=== PATIENT | male | born 1945 | race African-American/Black ===

== ENCOUNTER 2018-01-02 14:46 | Inpatient (IN) | payer MEDICARE, MEDICAID ==
[~2018-01-02] VITALS: Ht 182.9 cm; Wt 85.0 kg
[2018-01-02] MEDS ORDERED: ATOR40TA28 PO (16:09)
[2018-01-02] MEDS ORDERED: PANT40TA25 PO (16:09)
[2018-01-02] MEDS ORDERED: ASPI-556 PO (16:09)
[2018-01-02] MEDS ORDERED: LOSA50TA37 PO (16:09)
[2018-01-02] MEDS ORDERED: AMLO-512 PO (16:09)
[2018-01-02] MEDS ORDERED: METO50 PO (16:09)
[2018-01-02] MEDS ORDERED: DOCU250C91 PO (16:09)
[2018-01-02] MEDS ORDERED: HYDR25TA84 PO (16:09)
[2018-01-02 17:45] LABS: BASOPHILS % (AUTO) 0.6 % (0.0-2.0); EOSINOPHILS % (AUTO) 2.4 % (1.0-6.0); HEMATOCRIT 39.1 % (41-53); HEMOGLOBIN 13.9 g/dL (13.5-17.5); LYMPHOCYTES # (AUTO) 1.4 K/uL (1.0-4.8); LYMPHOCYTES % (AUTO) 20.2 % (22.0-44.0); MEAN CORPUSCULAR HEMOGLOBIN 29.5 pg (26.0-34.0); MEAN CORPUSCULAR HGB CONC 35.6 G/dL (31.0-37.0); MEAN CORPUSCULAR VOLUME 83 fL (80-100); MONOCYTES # (AUTO) 0.5 K/uL (0.1-1.0); MONOCYTES % (AUTO) 6.5 % (2.0-9.0); NEUTROPHILS # (AUTO) 4.9 K/uL (1.8-7.7); NEUTROPHILS % (AUTO) 70.3 % (40.0-70.0); PLATELET COUNT (AUTO) 222 K/uL (150-450); RED BLOOD CELL COUNT(AUTO) 4.71 MIL/uL (4.50-5.90); RED CELL DISTRIBUTION WIDTH 13.5 % (11.5-14.5)
[2018-01-02 18:08] LABS: PROTHROMBIN TIME 10.3 SEC (9.4-11.6)
[2018-01-02 18:22] LABS: B-TYPE NATRIURETIC PEPTIDE 112 pg/mL (0-100)
[2018-01-02 18:24] LABS: ALANINE AMINOTRANSFERASE 20 U/L (12-78); ALBUMIN 3.4 g/dL (3.4-5.0); ALKALINE PHOSPHATASE 111 U/L (46-116); ANION GAP 8 mmol/L (8-16); ASPARTATE AMINOTRANSFERASE 15 U/L (15-37); BILIRUBIN,TOTAL 0.3 mg/dL (0.1-1.0); CALCIUM, TOTAL 9.5 mg/dL (8.8-10.5); CARBON DIOXIDE 27 mmol/L (22-29); CHLORIDE 99 mmol/L (98-107); CREATINE KINASE, TOTAL 98 U/L (39-308); CREATININE 2.38 mg/dL (0.60-1.30); GLOMERULAR FILTR. RATE CALC 33 mL/min (>60); POTASSIUM 3.9 mmol/L (3.5-5.1); SODIUM SERUM 134 mmol/L (136-145); TOTAL PROTEIN, SERUM 7.4 g/dL (6.4-8.2); UREA NITROGEN, BLOOD 27 mg/dL (7-18)
[2018-01-02 18:26] LABS: GLUCOSE,RANDOM 546 mg/dL (70-110)
[2018-01-02 18:29] LABS: CREATINE KINASE MB 0.7 ng/mL (0-5)
[2018-01-02] MEDS ORDERED: INSULIN REGULAR, HUMAN 100 UNITS/ML IVP ONE (18:30)
[2018-01-02] MEDS ORDERED: CloNIDine HCL 0.2 MG TABLET PO ONE (18:30)
[2018-01-02 19:59] LABS: GLUCOSE,POINT OF CARE 419 MG/DL (70-110)
[2018-01-02] MEDS ORDERED: ZOLPIDEM TARTRATE 5 MG TABLET PO PRN (20:30)
[2018-01-02] MEDS ORDERED: BISACODYL 10 MG RECTAL RECTAL SUPPOSITORY PR PRN (20:30)
[2018-01-02] MEDS ORDERED: ALBUTEROL SULFATE 2.5 MG/0.5 ML NEB SOLUTION NEB PRN (20:30)
[2018-01-02] MEDS ORDERED: IPRATROPIUM BROMIDE 0.5 MG/2.5 ML NEB SOLUTION NEB PRN (20:30)
[2018-01-02] MEDS ORDERED: POTASSIUM CHL 10 MEQ/WATER 50 ML IV PRN (20:30)
[2018-01-02] MEDS ORDERED: DEXTROSE 50%-WATER 25 GM/50 ML SYRINGE IVP PRN (20:30)
[2018-01-02] MEDS ORDERED: ONDANSETRON HCL 4 MG/2 ML VIAL IVP PRN ×2 (20:30)
[2018-01-02] MEDS ORDERED: POTASSIUM CHLORIDE 20 MEQ ER TABLET PO PRN (20:30)
[2018-01-02] MEDS ORDERED: MAGNESIUM SULFATE 4 GM/WATER 100 ML IV PRN (20:30)
[2018-01-02] MEDS ORDERED: ACETAMINOPHEN 325 MG TABLET PO PRN ×2 (20:30)
[2018-01-02] MEDS ORDERED: MAGNESIUM OXIDE 400 MG TABLET PO PRN (20:30)
[2018-01-02] MEDS ORDERED: MAGNESIUM HYDROXIDE SUSPENSION 30 ML UDCUP PO PRN (20:30)
[2018-01-02] MEDS ORDERED: MAGNESIUM SULFATE 2 GM in DEXTROSE 5%-WATER 50 ML IV PRN (20:30)
[2018-01-02] MEDS ORDERED: 0.9% SODIUM CHLORIDE 10 ML SYRINGE IVP PRN (20:30)
[2018-01-02 20:54] LABS: GLUCOSE,POINT OF CARE 401 MG/DL (70-110)
[2018-01-02 21:35] VITALS: BP 118/74
[2018-01-02] MEDS: METOPROLOL TARTRATE 50 MG TABLET PO SCH (21:46)
[2018-01-02] MEDS: SODIUM CHLORIDE 0.9% 1,000 ML IV SCH (21:47)
[2018-01-02] MEDS: INSULIN LISPRO 100 UNITS/ML SQ PRN (22:08)
[2018-01-02] MEDS: LOSARTAN POTASSIUM 50 MG TABLET PO SCH (23:45)
[2018-01-03] VITALS (7 sets, daily range): BP systolic 141–180; BP diastolic 63–91
[2018-01-03] MEDS: HydrALAZINE HCL 25 MG TABLET PO SCH ×4 (00:19→23:59)
[2018-01-03] MEDS: INSULIN LISPRO 100 UNITS/ML SQ PRN ×4 (05:40→20:43)
[2018-01-03 06:05] LABS: BILIRUBIN,TOTAL 0.4 mg/dL (0.1-1.0); CALCIUM, TOTAL 8.9 mg/dL (8.8-10.5); CREATININE 2.36 mg/dL (0.60-1.30); MAGNESIUM 1.8 mg/dL (1.80-2.40); PHOSPHORUS 3.6 mg/dL (2.5-4.9); POTASSIUM 3.7 mmol/L (3.5-5.1); TOTAL PROTEIN, SERUM 6.8 g/dL (6.4-8.2)
[2018-01-03] MEDS: SODIUM CHLORIDE 0.9% 1,000 ML IV SCH ×2 (06:09→16:07)
[2018-01-03 06:16] LABS: HEMOGLOBIN A1C 9.5 % (4.5-6.2)
[2018-01-03 06:22] LABS: BASOPHILS % (AUTO) 0.6 % (0.0-2.0); EOSINOPHILS % (AUTO) 3.7 % (1.0-6.0); HEMATOCRIT 37.2 % (41-53); HEMOGLOBIN 13.3 g/dL (13.5-17.5); LYMPHOCYTES # (AUTO) 1.8 K/uL (1.0-4.8); LYMPHOCYTES % (AUTO) 27.7 % (22.0-44.0); MEAN CORPUSCULAR HEMOGLOBIN 29.1 pg (26.0-34.0); MEAN CORPUSCULAR HGB CONC 35.8 G/dL (31.0-37.0); MEAN CORPUSCULAR VOLUME 81 fL (80-100); MONOCYTES # (AUTO) 0.6 K/uL (0.1-1.0); MONOCYTES % (AUTO) 8.5 % (2.0-9.0); NEUTROPHILS % (AUTO) 59.5 % (40.0-70.0); PLATELET COUNT (AUTO) 200 K/uL (150-450); RED BLOOD CELL COUNT(AUTO) 4.57 MIL/uL (4.50-5.90); RED CELL DISTRIBUTION WIDTH 13.6 % (11.5-14.5)
[2018-01-03 07:37] LABS: GLUCOMETER DEV NAME(LOC) 5N 1P; GLUCOSE,POINT OF CARE 263 MG/DL (70-110)
[2018-01-03] MEDS: DOCUSATE SODIUM 250 MG CAPSULE PO SCH (08:31)
[2018-01-03] MEDS: ASPIRIN 81 MG EC TABLET PO SCH (08:31)
[2018-01-03] MEDS: ATORVASTATIN CALCIUM 40 MG TABLET PO SCH (08:31)
[2018-01-03] MEDS: PANTOPRAZOLE SODIUM 40 MG DR TABLET PO SCH (08:31)
[2018-01-03] MEDS: AmLODIPine BESYLATE 10 MG TABLET PO SCH (08:31)
[2018-01-03] MEDS: LOSARTAN POTASSIUM 50 MG TABLET PO SCH (08:32)
[2018-01-03] MEDS: METOPROLOL TARTRATE 50 MG TABLET PO SCH ×2 (08:33→20:41)
[2018-01-03 08:42] LABS: GLUCOMETER DEV NAME(LOC) 5N 2S; GLUCOSE,POINT OF CARE 416 MG/DL (70-110)
[2018-01-03 15:33] LABS: GLUCOMETER DEV NAME(LOC) 5N 1P; GLUCOSE,POINT OF CARE 371 MG/DL (70-110)
[2018-01-03 19:32] LABS: GLUCOMETER DEV NAME(LOC) 5N 1P; GLUCOSE,POINT OF CARE 257 MG/DL (70-110)
[2018-01-03] MEDS: INSULIN GLARGINE,HUM.REC.ANLOG 100 UNITS/ML SQ SCH (20:43)
[2018-01-04] VITALS (7 sets, daily range): BP systolic 159–191; BP diastolic 76–95
[2018-01-04] MEDS: SODIUM CHLORIDE 0.9% 1,000 ML IV SCH ×2 (02:28→14:56)
[2018-01-04] MEDS: INSULIN LISPRO 100 UNITS/ML SQ PRN ×4 (06:48→21:17)
[2018-01-04] MEDS: HydrALAZINE HCL 25 MG TABLET PO SCH ×2 (06:49→08:40)
[2018-01-04 07:04] LABS: CALCIUM, TOTAL 8.8 mg/dL (8.8-10.5); CREATININE 1.86 mg/dL (0.60-1.30); POTASSIUM 3.6 mmol/L (3.5-5.1)
[2018-01-04] MEDS: ASPIRIN 81 MG EC TABLET PO SCH (07:54)
[2018-01-04] MEDS: ATORVASTATIN CALCIUM 40 MG TABLET PO SCH (07:57)
[2018-01-04] MEDS: DOCUSATE SODIUM 250 MG CAPSULE PO SCH (07:57)
[2018-01-04] MEDS: METOPROLOL TARTRATE 50 MG TABLET PO SCH ×2 (07:57→21:13)
[2018-01-04] MEDS: PANTOPRAZOLE SODIUM 40 MG DR TABLET PO SCH (07:57)
[2018-01-04] MEDS: AmLODIPine BESYLATE 10 MG TABLET PO SCH (07:57)
[2018-01-04] MEDS: INSULIN GLARGINE,HUM.REC.ANLOG 100 UNITS/ML SQ SCH ×2 (08:45→21:14)
[2018-01-04 10:02] LABS: BASOPHILS % (AUTO) 0.2 % (0.0-2.0); EOSINOPHILS % (AUTO) 3.1 % (1.0-6.0); HEMATOCRIT 38.5 % (41-53); HEMOGLOBIN 13.6 g/dL (13.5-17.5); LYMPHOCYTES # (AUTO) 1.9 K/uL (1.0-4.8); LYMPHOCYTES % (AUTO) 28.9 % (22.0-44.0); MEAN CORPUSCULAR HEMOGLOBIN 29.2 pg (26.0-34.0); MEAN CORPUSCULAR HGB CONC 35.3 G/dL (31.0-37.0); MEAN CORPUSCULAR VOLUME 83 fL (80-100); MONOCYTES # (AUTO) 0.4 K/uL (0.1-1.0); MONOCYTES % (AUTO) 6.8 % (2.0-9.0); PLATELET COUNT (AUTO) 212 K/uL (150-450); RED BLOOD CELL COUNT(AUTO) 4.66 MIL/uL (4.50-5.90); RED CELL DISTRIBUTION WIDTH 13.7 % (11.5-14.5)
[2018-01-04] MEDS: HydrALAZINE HCL 50 MG TABLET PO SCH (16:00)
[2018-01-04 16:38] LABS: GLUCOMETER DEV NAME(LOC) 5N 1P; GLUCOSE,POINT OF CARE 209 MG/DL (70-110)
[2018-01-04 16:38] LABS: GLUCOMETER DEV NAME(LOC) 5N 1P; GLUCOSE,POINT OF CARE 353 MG/DL (70-110)
[2018-01-04 20:23] LABS: GLUCOMETER DEV NAME(LOC) 5N 2S; GLUCOSE,POINT OF CARE 227 MG/DL (70-110)
[2018-01-04 20:23] LABS: GLUCOMETER DEV NAME(LOC) 5N 2S; GLUCOSE,POINT OF CARE 367 MG/DL (70-110)
[2018-01-04] MEDS: HYDROCODONE/ACETAMINOPHEN 5-325 MG TABLET PO PRN (21:20)
[2018-01-05] MEDS: HydrALAZINE HCL 50 MG TABLET PO SCH ×2 (00:20→08:45)
[2018-01-05] MEDS: SODIUM CHLORIDE 0.9% 1,000 ML IV SCH (04:09)
[2018-01-05 04:42] VITALS: BP 191/96
[2018-01-05] MEDS: CloNIDine HCL 0.1 MG TABLET PO PRN ×2 (04:48→12:21)
[2018-01-05] MEDS: INSULIN LISPRO 100 UNITS/ML SQ PRN ×2 (05:56→11:48)
[2018-01-05 06:08] LABS: BASOPHILS % (AUTO) 0.7 % (0.0-2.0); EOSINOPHILS % (AUTO) 2.7 % (1.0-6.0); HEMOGLOBIN 13.1 g/dL (13.5-17.5); LYMPHOCYTES # (AUTO) 1.6 K/uL (1.0-4.8); LYMPHOCYTES % (AUTO) 25.2 % (22.0-44.0); MEAN CORPUSCULAR HEMOGLOBIN 29.9 pg (26.0-34.0); MEAN CORPUSCULAR HGB CONC 36.9 G/dL (31.0-37.0); MEAN CORPUSCULAR VOLUME 81 fL (80-100); MONOCYTES # (AUTO) 0.4 K/uL (0.1-1.0); MONOCYTES % (AUTO) 6.8 % (2.0-9.0); NEUTROPHILS # (AUTO) 4.1 K/uL (1.8-7.7); NEUTROPHILS % (AUTO) 64.6 % (40.0-70.0); PLATELET COUNT (AUTO) 196 K/uL (150-450); RED CELL DISTRIBUTION WIDTH 13.6 % (11.5-14.5)
[2018-01-05 06:18] LABS: CALCIUM, TOTAL 8.7 mg/dL (8.8-10.5); CREATININE 1.86 mg/dL (0.60-1.30); POTASSIUM 3.8 mmol/L (3.5-5.1)
[2018-01-05 07:37] VITALS: BP 181/90
[2018-01-05] MEDS: ATORVASTATIN CALCIUM 40 MG TABLET PO SCH (08:42)
[2018-01-05] MEDS: PANTOPRAZOLE SODIUM 40 MG DR TABLET PO SCH (08:42)
[2018-01-05] MEDS: ASPIRIN 81 MG EC TABLET PO SCH (08:45)
[2018-01-05] MEDS: AmLODIPine BESYLATE 10 MG TABLET PO SCH (08:45)
[2018-01-05] MEDS: DOCUSATE SODIUM 250 MG CAPSULE PO SCH (08:46)
[2018-01-05] MEDS: INSULIN GLARGINE,HUM.REC.ANLOG 100 UNITS/ML SQ SCH (08:47)
[2018-01-05 10:47] VITALS: BP 197/86
[2018-01-05] MEDS: METOPROLOL TARTRATE 50 MG TABLET PO SCH (10:52)
[2018-01-05] MEDS: HYDROCODONE/ACETAMINOPHEN 5-325 MG TABLET PO PRN (10:53)
[2018-01-05] MEDS ORDERED: GLIP5 PO (15:30)
[2018-01-05 15:41] VITALS: BP 158/99
[2018-01-06 17:18] LABS: GLUCOMETER DEV NAME(LOC) 5N 1P; GLUCOSE,POINT OF CARE 315 MG/DL (70-110)
[2018-01-06 20:28] LABS: GLUCOMETER DEV NAME(LOC) 5N 2S; GLUCOSE,POINT OF CARE 357 MG/DL (70-110)
[2018-01-06 20:28] LABS: GLUCOMETER DEV NAME(LOC) 5N 2S; GLUCOSE,POINT OF CARE 255 MG/DL (70-110)
== END 2018-01-05 16:00 | disposition home or self-care (01) | DRG 682 ==
LOC: EMS 14:48 → 5S 20:00
PROVIDERS: ADMIT Internal Medicine; ATTEND Internal Medicine
DX: I12.9 Hypertensive chronic kidney disease with stage 1 through stage 4 chronic kidney disease, or unspecified chronic kidney disease (principal); N17.0 Acute kidney failure with tubular necrosis; E87.1 Hypo-osmolality and hyponatremia; E11.65 Type 2 diabetes mellitus with hyperglycemia; E11.22 Type 2 diabetes mellitus with diabetic chronic kidney disease; H49.02 Third [oculomotor] nerve palsy, left eye; K59.00 Constipation, unspecified; N18.3 Chronic kidney disease, stage 3 (moderate); K21.9 Gastro-esophageal reflux disease without esophagitis; E78.5 Hyperlipidemia, unspecified; D17.9 Benign lipomatous neoplasm, unspecified; E86.0 Dehydration; H51.0 Palsy (spasm) of conjugate gaze; I78.1 Nevus, non-neoplastic; K59.09 Other constipation; Z89.512 Acquired absence of left leg below knee; Z91.013 Allergy to seafood; Z79.82 Long term (current) use of aspirin; Z79.899 Other long term (current) drug therapy
CPT/HCPCS: 70450; 70544; 70551; 83036; 83735; 84100; 93005; 96374; 99285; J1815; J7030

== ENCOUNTER 2019-05-26 17:31 | Inpatient (IN) | payer OTHER ==
[~2019-05-26] VITALS: Ht 182.9 cm; Wt 81.2 kg
[~2019-05-26 17:31] MED LIST: AMLO10TA7 PO; ASPI-556 PO; ATOR40TA28 PO; DOCU-342 PO; GLIP5 PO; HYDR25TA84 PO; METO50 PO; PANT40TA25 PO
[2019-05-26] MEDS ORDERED: SODIUM CHLORIDE 0.9% 2,500 ML IV ONE (18:22)
[2019-05-26] MEDS ORDERED: 0.9% SODIUM CHLORIDE 10 ML SYRINGE IVP PRN (18:30)
[2019-05-26 18:58] LABS: BASOPHILS % (AUTO) 0.7 % (0.0-2.0); EOSINOPHILS % (AUTO) 0.5 % (1.0-6.0); HEMATOCRIT 49.8 % (41-53); HEMOGLOBIN 17.6 g/dL (13.5-17.5); LYMPHOCYTES # (AUTO) 1.6 K/uL (1.0-4.8); LYMPHOCYTES % (AUTO) 16.2 % (22.0-44.0); MEAN CORPUSCULAR HEMOGLOBIN 29.3 pg (26.0-34.0); MEAN CORPUSCULAR HGB CONC 35.4 G/dL (31.0-37.0); MEAN CORPUSCULAR VOLUME 83 fL (80-100); MONOCYTES # (AUTO) 0.7 K/uL (0.1-1.0); MONOCYTES % (AUTO) 6.6 % (2.0-9.0); NEUTROPHILS # (AUTO) 7.7 K/uL (1.8-7.7); PLATELET COUNT (AUTO) 273 K/uL (150-450); RED BLOOD CELL COUNT(AUTO) 6.02 MIL/uL (4.50-5.90); RED CELL DISTRIBUTION WIDTH 13.8 % (11.5-14.5)
[2019-05-26 19:02] LABS: CALCIUM, TOTAL 10.4 mg/dL (8.8-10.5); CREATININE 2.72 mg/dL (0.60-1.30); POTASSIUM 3.2 mmol/L (3.5-5.1)
[2019-05-26 19:07] LABS: PROTHROMBIN TIME 10.5 SEC (9.4-11.6)
[2019-05-26 19:13] LABS: LACTIC ACID 1.8 mmol/L (0.4-2.0)
[2019-05-26 19:27] LABS: ALBUMIN 4.4 g/dL (3.4-5.0); BILIRUBIN,TOTAL 0.8 mg/dL (0.1-1.0)
[2019-05-26] MEDS ORDERED: NITROGLYCERIN 2% (1 GM=INCH) PACKET TP ONE (20:15)
[2019-05-26] MEDS ORDERED: POTASSIUM CHLORIDE 20 MEQ ER TABLET PO ONE (20:15)
[2019-05-26] MEDS ORDERED: CloNIDine HCL 0.2 MG TABLET PO ONE (20:15)
[2019-05-26 20:21] LABS: APPEARANCE,URINE CLEAR (CLEAR); BILIRUBIN,URINE NEGATIVE (NEGATIVE); GLUCOSE, URINE (UA) NEGATIVE (NEGATIVE); KETONES,URINE TRACE mg/dL (NEGATIVE); LEUKOCYTE ESTERASE ,URINE NEGATIVE (NEGATIVE); NITRATE,URINE NEGATIVE (NEGATIVE); OCCULT BLOOD,URINE TRACE (NEGATIVE); PH,URINE 7.5 (5.0-8.0); PROTEIN,URINE SEE CONFIRM (NEGATIVE)
[2019-05-26 20:31] LABS: BACTERIA,URINE Rare /HPF (None Seen); SQUAMOUS EPITHELIAL CELL,UR Few /LPF (None Seen); SULFOSALICYLIC ACID,URINE 3+ (Negative); WBC,URINE 0-2 /HPF (0-5)
[2019-05-26] MEDS ORDERED: LORazepam 2 MG/ML VIAL IVP ONE (21:15)
[2019-05-26] MEDS: HydrALAZINE HCL 20 MG/ML VIAL IVP PRN (23:28)
[2019-05-27 01:17] VITALS: BP 165/91
[2019-05-27 04:33] VITALS: BP 141/88
[2019-05-27] MEDS ORDERED: MAGNESIUM HYDROXIDE SUSPENSION 30 ML UDCUP PO PRN (05:00)
[2019-05-27] MEDS ORDERED: ONDANSETRON HCL 4 MG/2 ML VIAL IVP PRN (05:00)
[2019-05-27] MEDS ORDERED: 0.9% SODIUM CHLORIDE 10 ML SYRINGE IVP PRN (05:00)
[2019-05-27] MEDS ORDERED: OxyCODONE HCL/ACETAMINOPHEN 5-325 MG TABLET PO PRN ×2 (05:00)
[2019-05-27] MEDS ORDERED: ACETAMINOPHEN 325 MG TABLET PO PRN (05:00)
[2019-05-27 07:11] LABS: GLUCOMETER DEV NAME(LOC) 5S.1; GLUCOSE,POINT OF CARE 168 MG/DL (70-110)
[2019-05-27] MEDS: PANTOPRAZOLE SODIUM 40 MG DR TABLET PO SCH (10:12)
[2019-05-27] MEDS: ATORVASTATIN CALCIUM 40 MG TABLET PO SCH (10:12)
[2019-05-27] MEDS: DOCUSATE SODIUM 100 MG CAPSULE PO SCH ×3 (10:13→20:53)
[2019-05-27] MEDS: ASPIRIN 81 MG EC TABLET PO SCH (10:13)
[2019-05-27] MEDS: METOPROLOL TARTRATE 50 MG TABLET PO SCH (10:13)
[2019-05-27] MEDS: AmLODIPine BESYLATE 10 MG TABLET PO SCH (10:13)
[2019-05-27 10:16] VITALS: BP 160/96
[2019-05-27] MEDS: METOCLOPRAMIDE HCL 5 MG TABLET PO SCH ×4 (12:20→20:53)
[2019-05-27] MEDS ORDERED: DEXTROSE 50%-WATER 25 GM/50 ML SYRINGE IVP PRN (12:30)
[2019-05-27] MEDS: INSULIN LISPRO 100 UNITS/ML SQ PRN ×3 (12:35→20:48)
[2019-05-27 15:36] VITALS: BP 158/82
[2019-05-27 17:26] LABS: GLUCOMETER DEV NAME(LOC) 5S.1; GLUCOSE,POINT OF CARE 272 MG/DL (70-110)
[2019-05-27 17:26] LABS: GLUCOMETER DEV NAME(LOC) 5S.1; GLUCOSE,POINT OF CARE 137 MG/DL (70-110)
[2019-05-27 18:46] LABS: CREATININE,URINE RANDOM 144.3 mg/dL (30.0-125.0)
[2019-05-27 18:48] LABS: AMPHET/METH SCREEN,URINE NEGATIVE (NEGATIVE); BARBITURATE SCREEN, URINE NEGATIVE (NEGATIVE); BENZODIAZEPINES SCREEN,URINE NEGATIVE (NEGATIVE); CANNABINOID SCREEN,URINE POSITIVE (NEGATIVE); COCAINE SCREEN,URINE NEGATIVE (NEGATIVE); METHADONE SCREEN, URINE NEGATIVE (NEGATIVE); OPIATE SCREEN,URINE NEGATIVE (NEGATIVE); PHENCYCLIDINE SCREEN,URINE NEGATIVE (NEGATIVE)
[2019-05-27 20:40] LABS: GLUCOMETER DEV NAME(LOC) 5S.1; GLUCOSE,POINT OF CARE 260 MG/DL (70-110)
[2019-05-27 20:43] VITALS: BP 166/73
[2019-05-28 00:18] VITALS: BP 174/93
[2019-05-28] MEDS: HydrALAZINE HCL 20 MG/ML VIAL IVP PRN (04:28)
[2019-05-28 04:29] VITALS: BP 207/100
[2019-05-28] MEDS: INSULIN LISPRO 100 UNITS/ML SQ PRN ×2 (06:13→11:16)
[2019-05-28] MEDS: METOCLOPRAMIDE HCL 5 MG TABLET PO SCH ×2 (06:14→11:14)
[2019-05-28 06:15] VITALS: BP 183/88
[2019-05-28 06:38] LABS: CALCIUM, TOTAL 9.2 mg/dL (8.8-10.5); CREATININE 2.66 mg/dL (0.60-1.30); HEMOGLOBIN A1C 6.7 % (4.5-6.2); POTASSIUM 3.5 mmol/L (3.5-5.1)
[2019-05-28 06:57] LABS: BASOPHILS % (AUTO) 0.9 % (0.0-2.0); EOSINOPHILS % (AUTO) 3.3 % (1.0-6.0); HEMATOCRIT 41.1 % (41-53); HEMOGLOBIN 14.4 g/dL (13.5-17.5); LYMPHOCYTES # (AUTO) 2.2 K/uL (1.0-4.8); LYMPHOCYTES % (AUTO) 34.1 % (22.0-44.0); MEAN CORPUSCULAR HEMOGLOBIN 29.3 pg (26.0-34.0); MEAN CORPUSCULAR VOLUME 84 fL (80-100); MONOCYTES # (AUTO) 0.5 K/uL (0.1-1.0); MONOCYTES % (AUTO) 7.7 % (2.0-9.0); NEUTROPHILS # (AUTO) 3.4 K/uL (1.8-7.7); RED CELL DISTRIBUTION WIDTH 13.7 % (11.5-14.5)
[2019-05-28 07:42] LABS: PLATELET COUNT (AUTO) 198 K/uL (150-450)
[2019-05-28] MEDS: DOCUSATE SODIUM 100 MG CAPSULE PO SCH (08:03)
[2019-05-28] MEDS: METOPROLOL TARTRATE 50 MG TABLET PO SCH (08:03)
[2019-05-28] MEDS: AmLODIPine BESYLATE 10 MG TABLET PO SCH (08:03)
[2019-05-28] MEDS: ASPIRIN 81 MG EC TABLET PO SCH (08:03)
[2019-05-28] MEDS: ATORVASTATIN CALCIUM 40 MG TABLET PO SCH (08:03)
[2019-05-28] MEDS: PANTOPRAZOLE SODIUM 40 MG DR TABLET PO SCH (08:03)
[2019-05-28 08:11] VITALS: BP 154/92
[2019-05-28 11:24] VITALS: BP 164/85
[2019-05-28] MEDS ORDERED: INFLUENZA VIRUS VACCINE QVS 2019-20 (3YR+)/PF 60 MCG/0.5 ML SYRINGE IM ONE (12:45)
[2019-05-29 07:32] LABS: GLUCOMETER DEV NAME(LOC) 5S.1; GLUCOSE,POINT OF CARE 182 MG/DL (70-110)
[2019-05-29 07:32] LABS: GLUCOMETER DEV NAME(LOC) 5S.1; GLUCOSE,POINT OF CARE 243 MG/DL (70-110)
== END 2019-05-28 15:25 | disposition home or self-care (01) | DRG 682 ==
LOC: EMS 17:32 → 5N 23:12
PROVIDERS: ADMIT Internal Medicine; ATTEND Internal Medicine
PROC: 3E0234Z Introduction of Serum, Toxoid and Vaccine into Muscle, Percutaneous Approach (ICD-10-PCS; principal; 2019-05-28)
DX: N17.9 Acute kidney failure, unspecified (principal); G93.41 Metabolic encephalopathy; I13.0 Hypertensive heart and chronic kidney disease with heart failure and stage 1 through stage 4 chronic kidney disease, or unspecified chronic kidney disease; E87.6 Hypokalemia; N18.3 Chronic kidney disease, stage 3 (moderate); E11.22 Type 2 diabetes mellitus with diabetic chronic kidney disease; E78.00 Pure hypercholesterolemia, unspecified; I16.0 Hypertensive urgency; E78.5 Hyperlipidemia, unspecified; E11.51 Type 2 diabetes mellitus with diabetic peripheral angiopathy without gangrene; I50.9 Heart failure, unspecified; Z79.82 Long term (current) use of aspirin; Z79.84 Long term (current) use of oral hypoglycemic drugs; Z79.899 Other long term (current) drug therapy; Z89.512 Acquired absence of left leg below knee; Z23 Encounter for immunization; Z91.013 Allergy to seafood
CPT/HCPCS: 70450; 70551; 76770; 82570; 83036; 83605; 84156; 87040; 87081; 90686; 93005; 96374; G0480; J0360; J2060; J7030